=== PATIENT | female | born 1950 | race Caucasian/White ===

== ENCOUNTER → 2025-01-27 07:52 | Outpatient (REF) | payer MEDICARE, OTHER, SELFPAY | LOC: HWRCS 07:52 | PROVIDERS: ATTENDING PHYSICIAN Internal Medicine Cardiovascular Disease; FAMILY PHYSICIAN Internal Medicine | DX: E78.00 Pure hypercholesterolemia, unspecified (principal); R55 Syncope and collapse | CPT/HCPCS: 93306 ==